=== PATIENT | female | born 1945 | race African-American/Black ===

== ENCOUNTER 2017-10-04 15:00 | Outpatient (RCR) | payer MEDICARE, SELFPAY | END 2017-10-05 | LOC: PT 15:00 | PROVIDERS: Visit Provider Family Medicine | DX: I89.0 Lymphedema, not elsewhere classified (principal) | CPT/HCPCS: G8987; G8988; G8989; 97110; 97140; 97162 ==

== ENCOUNTER 2024-02-12 11:00 | Outpatient (RCR) | payer MEDICARE, OTHER, SELFPAY | END 2024-02-12 12:10 | disposition home or self-care (01) | LOC: PT 11:00 | PROVIDERS: Visit Provider Dermatology | DX: I89.0 Lymphedema, not elsewhere classified (principal) | CPT/HCPCS: 97140; 97163; 97164; 97760 ==